=== PATIENT | female | born 1950 | race Caucasian/White ===

== ENCOUNTER 2017-08-16 19:42 | Inpatient (IN) | payer OTHER ==
[~2017-08-16] VITALS: Ht 160 cm; Wt 123.0 kg
[~2017-08-16 19:42] MED LIST: ASPIR 8181 M1 PO; AUGMENTIN875 MG PO; DAILY VALUE1 EACH PO; ENALAPRIL MALEA10 MG PO; MAXEPA500 MG PO; METFORMIN HCL500 MG PO; METOPROLOL TAR100 MG PO; SIMVASTATIN20 MG PO
[2017-08-16 20:10] LABS: BASE EXCESS -2.7 mEq/L (-3 to +3); BICARBONATE 21.2 mEq/L (22-26); CARBOXY HGB 1.5 % (0-5); COMMENTS - BLOOD GASES A+C+; PCO2 32 mm Hg (35-45); PO2 465 mm Hg (80-100); SITE RR; pH 7.43 (7.35-7.45)
[2017-08-16 20:11] LABS: DEVICE PB 840 NIPPV; FI02 100 %; MODE SPONT; PEEP 5 CM/H20; PRES. SUPPORT 10 CM/H2O; TOTAL RESP RATE 32 resp/min
[2017-08-16 20:42] LABS: HEMATOCRIT 24.4 % (36.0-46.0); HEMOGLOBIN 7.7 G/DL (11.9-15.5); MCH 27.7 PG (29.0-34.0); MCHC 31.6 G/DL (30.0-36.0); MCV 87.8 FL (83-99); RBC DIS.WIDTH-CV 15.6 % (11.8-14.6); RBC DIS.WIDTH-SD 50.3 % (39-53); RED BLOOD COUNT 2.78 M/uL (3.80-5.20)
[2017-08-16 20:48] LABS: INTER. NORMALIZED RATIO 1.4
[2017-08-16 20:50] LABS: ALBUMIN 2.8 g/dL (3.2-4.8); CHLORIDE 102 mEq/L (99-109); POTASSIUM 4.7 mEq/L (3.7-5.4); SODIUM 135 mEq/L (136-147)
[2017-08-16 20:51] LABS: PTT 26.2 SEC (25-37)
[2017-08-16 20:51] LABS: MAGNESIUM 1.8 mg/dL (1.3-2.7)
[2017-08-16 20:53] LABS: GLUCOSE 115 mg/dL (70-99); TOTAL PROTEIN 7.3 g/dL (6.4-8.3)
[2017-08-16 20:55] LABS: TOTAL BILIRUBIN 0.8 mg/dL (0.0-1.0)
[2017-08-16 20:56] LABS: ALKALINE PHOSPHATASE 143 IU/L (3-129); GFR ESTIMATE (CALCULATED) 26 mL/min/
[2017-08-16 20:57] LABS: UREA NITROGEN (BUN) 45 mg/dL (9-23)
[2017-08-16 20:58] LABS: AST (GOT) 24 IU/L (2-34)
[2017-08-16 20:59] LABS: ALT (GPT) 20 IU/L (3-49)
[2017-08-16 21:00] LABS: TROP-I INTERPRETATION NEGATIVE; TROPONIN-I 0.12 ng/mL (0.0-0.30)
[2017-08-16 21:05] LABS: WHITE BLOOD COUNT 1.6 K/uL (4.1-10.2)
[2017-08-16 21:41] LABS: GIANT PLATELETS 1+; HYPOCHROMASIA 1+; POLYCHROMASIA 1+
[2017-08-16 21:42] LABS: PLATELET COUNT UNABLE TO REPORT K/uL (156-360)
[2017-08-16 21:43] LABS: ABS NEUTROPHIL COUNT 0.1; ATYPICAL LYMPHOCYTE 1.8 %; EOSINOPHIL ABS CT 0.1; EOSINOPHILS 4.5 % (0-5.0); MONOCYTES 42.3 % (0-9.0); SEG.NEUTROPHILS 5.4 % (46.0-76.0)
[2017-08-16 21:48] LABS: PLATELET CLUMPS PRESENT - PLATELET C
[2017-08-17] VITALS (21 sets, daily range): BP systolic 108–172; BP diastolic 58–96
[2017-08-17 02:09] LABS: CHLORIDE 103 mEq/L (99-109); POTASSIUM 5.2 mEq/L (3.7-5.4); SODIUM 136 mEq/L (136-147)
[2017-08-17 02:11] LABS: GLUCOSE 172 mg/dL (70-99)
[2017-08-17 02:13] LABS: HEMATOCRIT 23.4 % (36.0-46.0); HEMOGLOBIN 7.4 G/DL (11.9-15.5); MCHC 31.6 G/DL (30.0-36.0); MCV 88.6 FL (83-99); RBC DIS.WIDTH-CV 15.5 % (11.8-14.6); RBC DIS.WIDTH-SD 50.4 % (39-53); RED BLOOD COUNT 2.64 M/uL (3.80-5.20)
[2017-08-17 02:15] LABS: CREATININE 2.1 mg/dL (0.6-1.3); GFR ESTIMATE (CALCULATED) 25 mL/min/
[2017-08-17 02:16] LABS: UREA NITROGEN (BUN) 47 mg/dL (9-23)
[2017-08-17] MEDS ORDERED: PAIN & FEVER325 MG PO (02:30)
[2017-08-17] MEDS ORDERED: AMARYL2 MG PO (02:31)
[2017-08-17] MEDS ORDERED: AMARYL1 MG PO (02:31)
[2017-08-17] MEDS ORDERED: IRON325 M1 PO (02:32)
[2017-08-17] MEDS ORDERED: COUGH SYRU100 MG/5 M PO (02:33)
[2017-08-17] MEDS ORDERED: PERCOCET 5/31 TABLET PO (02:34)
[2017-08-17] MEDS ORDERED: PERCOCET 10/1 TABLET PO (02:34)
[2017-08-17] MEDS ORDERED: SENNA PLUS TAB1 EACH PO (02:35)
[2017-08-17] MEDS ORDERED: TUMS500 MG PO (02:36)
[2017-08-17] MEDS ORDERED: ASPIR 8181 M1 PO (02:51)
[2017-08-17] MEDS ORDERED: NORVASC10 MG PO (02:51)
[2017-08-17] MEDS ORDERED: LIPITOR20 MG PO (02:52)
[2017-08-17] MEDS ORDERED: PLAVIX75 MG PO (02:52)
[2017-08-17] MEDS ORDERED: DULCOLAX10 MG PR (02:53)
[2017-08-17] MEDS ORDERED: PEPCID20 MG PO (02:53)
[2017-08-17] MEDS ORDERED: APRESOLINE25 MG PO ×2 (02:54→02:55)
[2017-08-17] MEDS ORDERED: MILK OF MAGN PO (02:56)
[2017-08-17] MEDS ORDERED: MIRALAX17 GM PO (02:57)
[2017-08-17 03:12] LABS: PLATELET COUNT 305 K/uL (156-360)
[2017-08-17 03:13] LABS: ABS NEUTROPHIL COUNT 0.1; BAND NEUTROPHILS 0.9 % (0-8.0); EOSINOPHIL ABS CT 0.1; EOSINOPHILS 2.6 % (0-5.0); HYPOCHROMASIA 2+; LYMPHOCYTES 44.7 % (15.0-45.0); MONOCYTES 48.3 % (0-9.0); PLAT.SUFFICIENCY ADEQUATE; POLYCHROMASIA 1+; SEG.NEUTROPHILS 3.5 % (46.0-76.0); TOX.VACUOLIZATION 1+; TOXIC GRANULATION 1+
[2017-08-17 09:34] LABS: TROP-I INTERPRETATION NEGATIVE; TROPONIN-I 0.16 ng/mL (0.0-0.30)
[2017-08-17 10:23] LABS: VANCOMYCIN, TROUGH 17.5 MCG/ML (10-20)
[2017-08-17 12:15] LABS: BASE EXCESS -3.2 mEq/L (-3 to +3); BICARBONATE 21.1 mEq/L (22-26); CARBOXY HGB 2.8 % (0-5); COMMENTS - BLOOD GASES AC+; DEVICE HHFNC; FI02 100 %; METHEMOGLOBIN 1.1 % (0-1.5); O2 FLOW 35 L/MIN; PCO2 34 mm Hg (35-45); PO2 68 mm Hg (80-100); SITE RR; TOTAL RESP RATE 38 resp/min
[2017-08-17 14:37] LABS: APPEARANCE SL.HAZY ((CLEAR)); BILIRUBIN NEGATIVE; BLOOD MODERATE; COLOR YELLOW ((YELLOW)); GLUCOSE (STRIP) NEGATIVE; KETONES NEGATIVE; LEUKOCYTES NEGATIVE; NITRITE NEGATIVE; PROTEIN (STRIP) 30; UROBILINOGEN 0.2 MG/DL (0.2-1.0)
[2017-08-17 14:41] LABS: BACTERIA RARE /HPF; EPITHELIAL CELLS RARE /HPF; HYALINE CASTS 0-5 /LPF; MUCUS TRACE /LPF; UCUL ADDED? NO; WHITE BLOOD CELLS 0-5 /HPF (0-5)
[2017-08-17 15:59] LABS: TROP-I INTERPRETATION NEGATIVE; TROPONIN-I 0.19 ng/mL (0.0-0.30)
[2017-08-18] VITALS (13 sets, daily range): BP systolic 113–149; BP diastolic 60–91
[2017-08-18 05:08] LABS: HEMATOCRIT 25.4 % (36.0-46.0); HEMOGLOBIN 8.1 G/DL (11.9-15.5); MCH 27.6 PG (29.0-34.0); MCHC 31.9 G/DL (30.0-36.0); MCV 86.7 FL (83-99); PLATELET COUNT 334 K/uL (156-360); RBC DIS.WIDTH-CV 15.8 % (11.8-14.6); RBC DIS.WIDTH-SD 50.6 % (39-53); RED BLOOD COUNT 2.93 M/uL (3.80-5.20); WHITE BLOOD COUNT 2.4 K/uL (4.1-10.2)
[2017-08-18 05:34] LABS: CHLORIDE 103 mEq/L (99-109); SODIUM 141 mEq/L (136-147)
[2017-08-18 05:39] LABS: GLUCOSE 90 mg/dL (70-99); POTASSIUM 4.1 mEq/L (3.7-5.4)
[2017-08-18 05:40] LABS: CREATININE 1.9 mg/dL (0.6-1.3); GFR ESTIMATE (CALCULATED) 28 mL/min/
[2017-08-18 05:41] LABS: UREA NITROGEN (BUN) 55 mg/dL (9-23)
[2017-08-18 07:13] LABS: STOOL OCCULT BLD 1ST SPECIMEN POSITIVE
[2017-08-18 07:15] LABS: ABS NEUTROPHIL COUNT 0.1; ANISOCYTOSIS 1+; ATYPICAL LYMPHOCYTE 5.2 %; EOSINOPHIL ABS CT 0.1; EOSINOPHILS 5.2 % (0-5.0); HYPOCHROMASIA 1+; MONOCYTES 25.2 % (0-9.0); PLAT.SUFFICIENCY ADEQUATE; POLYCHROMASIA 1+; SEG.NEUTROPHILS 4.4 % (46.0-76.0)
[2017-08-19] VITALS (19 sets, daily range): BP systolic 99–137; BP diastolic 47–74
[2017-08-19 10:10] LABS: CHLORIDE 100 MEQ/L (99-109); CREATININE 1.9 MG/DL (0.6-1.3); GFR ESTIMATE (CALCULATED) 28 mL/min/; POTASSIUM 3.8 MEQ/L (3.7-5.4); SODIUM 137 MEQ/L (136-147); UREA NITROGEN (BUN) 54 mg/dL (9-23)
[2017-08-19 10:17] LABS: GLUCOSE 171 mg/dL (70-99)
[2017-08-20 03:56] VITALS: BP 139/64
[2017-08-20 07:35] VITALS: BP 136/65
[2017-08-20 11:29] VITALS: BP 122/60
[2017-08-20 11:29] LABS: CHLORIDE 100 MEQ/L (99-109); CREATININE 2.3 MG/DL (0.6-1.3); GFR ESTIMATE (CALCULATED) 22 mL/min/; GLUCOSE 150 mg/dL (70-99); POTASSIUM 3.8 MEQ/L (3.7-5.4); SODIUM 137 MEQ/L (136-147); UREA NITROGEN (BUN) 59 mg/dL (9-23)
[2017-08-20 15:56] VITALS: BP 122/62
[2017-08-20 20:01] VITALS: BP 134/75
[2017-08-21 00:03] VITALS: BP 111/54
[2017-08-21 03:50] VITALS: BP 123/59
[2017-08-21 06:38] LABS: CHLORIDE 100 MEQ/L (99-109); GFR ESTIMATE (CALCULATED) 18 mL/min/; MAGNESIUM 1.8 mg/dl (1.3-2.7); POTASSIUM 3.9 MEQ/L (3.7-5.4); SODIUM 134 MEQ/L (136-147); UREA NITROGEN (BUN) 72 mg/dL (9-23)
[2017-08-21 06:45] LABS: CREATININE 2.8 MG/DL (0.6-1.3); GLUCOSE 111 mg/dL (70-99)
[2017-08-21 07:40] VITALS: BP 127/68
[2017-08-21 12:23] VITALS: BP 124/66
[2017-08-21 15:47] VITALS: BP 126/61
[2017-08-21 19:54] VITALS: BP 132/62
[2017-08-22] VITALS (10 sets, daily range): BP systolic 100–140; BP diastolic 56–74
[2017-08-22 05:39] LABS: BASOPHIL (%) 0.5 % (0-1); EOSINOPHIL COUNT 0.1 K/uL (0-0.3); HEMATOCRIT 23.3 % (36.0-46.0); HEMOGLOBIN 7.5 G/DL (11.9-15.5); IMMATURE GRANULOCYTE (%) 2.1 % (0.0-0.7); LYMPHOCYTE (%) 14.9 % (15-42); LYMPHOCYTE COUNT 0.9 K/uL (1.0-2.8); MCH 27.5 PG (29.0-34.0); MCHC 32.2 G/DL (30.0-36.0); MCV 85.3 FL (83-99); MONOCYTE (%) 22.4 % (3-12); MONOCYTE COUNT 1.4 K/uL (0-0.8); NEUTROPHIL (%) 59.1 % (45-76); NEUTROPHIL COUNT 3.6 K/uL (1.8-6.4); PLATELET COUNT 363 K/uL (156-360); RBC DIS.WIDTH-CV 16.4 % (11.8-14.6); RBC DIS.WIDTH-SD 51.7 % (39-53); RED BLOOD COUNT 2.73 M/uL (3.80-5.20); WHITE BLOOD COUNT 6.1 K/uL (4.1-10.2)
[2017-08-22 05:55] LABS: CHLORIDE 99 MEQ/L (99-109); GFR ESTIMATE (CALCULATED) 14 mL/min/; GLUCOSE 122 mg/dL (70-99); POTASSIUM 3.7 MEQ/L (3.7-5.4); SODIUM 135 MEQ/L (136-147); UREA NITROGEN (BUN) 76 mg/dL (9-23)
[2017-08-22 05:56] LABS: CREATININE 3.4 MG/DL (0.6-1.3)
[2017-08-23 03:47] VITALS: BP 139/82; BP 160/84
[2017-08-23 07:22] LABS: CHLORIDE 97 MEQ/L (99-109); GFR ESTIMATE (CALCULATED) 11 mL/min/; GLUCOSE 131 mg/dL (70-99); SODIUM 135 MEQ/L (136-147); UREA NITROGEN (BUN) 95 mg/dL (9-23)
[2017-08-23 07:25] LABS: CREATININE 4.3 MG/DL (0.6-1.3)
[2017-08-23 07:41] VITALS: BP 119/59
[2017-08-23 09:13] LABS: BASOPHIL (%) 0.5 % (0-1); EOSINOPHIL (%) 0.6 % (0-5); EOSINOPHIL COUNT 0.1 K/uL (0-0.3); HEMATOCRIT 26.8 % (36.0-46.0); HEMOGLOBIN 8.4 G/DL (11.9-15.5); LYMPHOCYTE (%) 12.6 % (15-42); MCH 27.1 PG (29.0-34.0); MCHC 31.3 G/DL (30.0-36.0); MCV 86.5 FL (83-99); MONOCYTE (%) 17.4 % (3-12); MONOCYTE COUNT 1.4 K/uL (0-0.8); NEUTROPHIL (%) 65.9 % (45-76); NEUTROPHIL COUNT 5.5 K/uL (1.8-6.4); PLATELET COUNT 377 K/uL (156-360); RBC DIS.WIDTH-CV 16.1 % (11.8-14.6); WHITE BLOOD COUNT 8.3 K/uL (4.1-10.2)
[2017-08-23 09:38] LABS: URIC ACID 15.6 mg/dL (3.1-9.2)
[2017-08-23 11:51] VITALS: BP 140/64
[2017-08-23 16:00] VITALS: BP 139/69
[2017-08-23 19:30] VITALS: BP 134/68
[2017-08-23 23:32] VITALS: BP 114/55
[2017-08-24 03:49] VITALS: BP 136/65
[2017-08-24 07:25] VITALS: BP 129/67
[2017-08-24 08:56] LABS: HEMATOCRIT 26.2 % (36.0-46.0); HEMOGLOBIN 8.2 G/DL (11.9-15.5); MCH 26.5 PG (29.0-34.0); MCHC 31.3 G/DL (30.0-36.0); MCV 84.8 FL (83-99); PLATELET COUNT 388 K/uL (156-360); RBC DIS.WIDTH-CV 15.9 % (11.8-14.6); RBC DIS.WIDTH-SD 49.5 % (39-53); RED BLOOD COUNT 3.09 M/uL (3.80-5.20); WHITE BLOOD COUNT 8.2 K/uL (4.1-10.2)
[2017-08-24 09:23] LABS: ALBUMIN 2.2 G/DL (3.2-4.8); ALKALINE PHOSPHATASE 167 IU/L (3-129); ALT (GPT) 12 IU/L (3-49); AST (GOT) 12 IU/L (2-34); CHLORIDE 100 MEQ/L (99-109); CREATININE 4.7 MG/DL (0.6-1.3); GFR ESTIMATE (CALCULATED) 10 mL/min/; GLUCOSE 162 mg/dL (70-99); POTASSIUM 3.9 MEQ/L (3.7-5.4); SODIUM 137 MEQ/L (136-147); TOTAL BILIRUBIN 0.6 MG/DL (0.0-1.0); TOTAL PROTEIN 6.2 G/DL (6.4-8.3); UREA NITROGEN (BUN) 108 mg/dL (9-23)
[2017-08-24 11:19] VITALS: BP 128/66
[2017-08-24 15:41] VITALS: BP 125/66
[2017-08-24 19:57] VITALS: BP 146/81
[2017-08-25] VITALS (7 sets, daily range): BP systolic 123–167; BP diastolic 60–82
[2017-08-25 06:21] LABS: ALBUMIN 2.2 G/DL (3.2-4.8); CHLORIDE 101 MEQ/L (99-109); CREATININE 4.4 MG/DL (0.6-1.3); GFR ESTIMATE (CALCULATED) 11 mL/min/; GLUCOSE 130 mg/dL (70-99); PHOSPHORUS 6.6 mg/dL (2.5-4.9); POTASSIUM 3.7 MEQ/L (3.7-5.4); SODIUM 138 MEQ/L (136-147)
[2017-08-25 06:32] LABS: UREA NITROGEN (BUN) 112 mg/dL (9-23)
[2017-08-26 03:38] VITALS: BP 127/64
[2017-08-26 06:44] LABS: HEMATOCRIT 28.4 % (36.0-46.0); HEMOGLOBIN 8.9 G/DL (11.9-15.5); MCH 26.8 PG (29.0-34.0); MCHC 31.3 G/DL (30.0-36.0); MCV 85.5 FL (83-99); PLATELET COUNT 424 K/uL (156-360); RBC DIS.WIDTH-CV 15.9 % (11.8-14.6); RBC DIS.WIDTH-SD 49.2 % (39-53); RED BLOOD COUNT 3.32 M/uL (3.80-5.20); WHITE BLOOD COUNT 9.3 K/uL (4.1-10.2)
[2017-08-26 07:19] LABS: ALBUMIN 2.6 G/DL (3.2-4.8); CHLORIDE 105 MEQ/L (99-109); CREATININE 3.8 MG/DL (0.6-1.3); GFR ESTIMATE (CALCULATED) 13 mL/min/; GLUCOSE 109 mg/dL (70-99); PHOSPHORUS 4.8 mg/dL (2.5-4.9); POTASSIUM 3.7 MEQ/L (3.7-5.4); SODIUM 140 MEQ/L (136-147)
[2017-08-26 07:22] LABS: UREA NITROGEN (BUN) 105 mg/dL (9-23)
[2017-08-26 07:24] VITALS: BP 125/64
[2017-08-26 11:46] VITALS: BP 131/68
[2017-08-26 16:06] VITALS: BP 141/72
[2017-08-26 19:12] VITALS: BP 153/78
[2017-08-26 23:51] VITALS: BP 164/77
[2017-08-27 06:36] LABS: BASOPHIL (%) 0.4 % (0-1); EOSINOPHIL (%) 0.2 % (0-5); HEMATOCRIT 28.9 % (36.0-46.0); HEMOGLOBIN 9.1 G/DL (11.9-15.5); IMMATURE GRANULOCYTE (%) 4.9 % (0.0-0.7); LYMPHOCYTE (%) 18.9 % (15-42); LYMPHOCYTE COUNT 1.7 K/uL (1.0-2.8); MCH 27.2 PG (29.0-34.0); MCHC 31.5 G/DL (30.0-36.0); MCV 86.5 FL (83-99); MONOCYTE (%) 13.1 % (3-12); MONOCYTE COUNT 1.2 K/uL (0-0.8); NEUTROPHIL (%) 62.5 % (45-76); NEUTROPHIL COUNT 5.6 K/uL (1.8-6.4); PLATELET COUNT 384 K/uL (156-360); RBC DIS.WIDTH-CV 15.9 % (11.8-14.6); RBC DIS.WIDTH-SD 50.1 % (39-53); RED BLOOD COUNT 3.34 M/uL (3.80-5.20)
[2017-08-27 07:01] LABS: ALBUMIN 2.5 G/DL (3.2-4.8); CHLORIDE 108 MEQ/L (99-109); GFR ESTIMATE (CALCULATED) 18 mL/min/; GLUCOSE 132 mg/dL (70-99); PHOSPHORUS 3.8 mg/dL (2.5-4.9); POTASSIUM 3.7 MEQ/L (3.7-5.4); SODIUM 143 MEQ/L (136-147); UREA NITROGEN (BUN) 100 mg/dL (9-23)
[2017-08-27 07:04] LABS: CREATININE 2.8 MG/DL (0.6-1.3)
[2017-08-27 07:35] VITALS: BP 169/78
[2017-08-27 16:29] VITALS: BP 163/76
[2017-08-27 20:48] VITALS: BP 164/73
[2017-08-28 01:30] VITALS: BP 145/80
[2017-08-28 06:00] VITALS: BP 150/80
[2017-08-28 08:01] LABS: HEMATOCRIT 28.7 % (36.0-46.0); MCH 27.4 PG (29.0-34.0); MCHC 31.4 G/DL (30.0-36.0); MCV 87.2 FL (83-99); PLATELET COUNT 321 K/uL (156-360); RBC DIS.WIDTH-CV 15.6 % (11.8-14.6); RBC DIS.WIDTH-SD 50.3 % (39-53); RED BLOOD COUNT 3.29 M/uL (3.80-5.20); WHITE BLOOD COUNT 9.7 K/uL (4.1-10.2)
[2017-08-28 08:07] LABS: INTER. NORMALIZED RATIO 1.4
[2017-08-28 08:10] LABS: PTT 28.2 SEC (25-37)
[2017-08-28 08:16] VITALS: BP 175/84
[2017-08-28 08:48] LABS: CHLORIDE 107 MEQ/L (99-109); GFR ESTIMATE (CALCULATED) 25 mL/min/; GLUCOSE 146 mg/dL (70-99); POTASSIUM 3.6 MEQ/L (3.7-5.4); SODIUM 141 MEQ/L (136-147); UREA NITROGEN (BUN) 79 mg/dL (9-23)
[2017-08-28 08:49] LABS: CREATININE 2.1 MG/DL (0.6-1.3)
[2017-08-28 10:35] VITALS: BP 122/64
[2017-08-28] MEDS ORDERED: PERCOCET 10/1 TABLET PO (12:26)
[2017-08-28] MEDS ORDERED: Colchicine,Colcrys PO (12:29)
[2017-08-28] MEDS ORDERED: LASIX20 MG PO (12:31)
[2017-08-28] MEDS ORDERED: PERCOCET 5/31 TABLET PO (13:08)
[2017-08-28 16:01] VITALS: BP 164/79
[2017-08-28 20:05] VITALS: BP 157/74
[2017-08-29 01:20] VITALS: BP 150/86
[2017-08-29 04:06] VITALS: BP 152/68
[2017-08-29 07:53] VITALS: BP 136/86
[2017-08-29] MEDS ORDERED: LASIX20 MG PO (08:17)
[2017-08-29] MEDS ORDERED: NABI650T PO (08:17)
[2017-08-29] MEDS ORDERED: ULORIC40 MG PO (08:17)
[2017-08-29] MEDS ORDERED: GLIPIZIDE5 MG PO (08:17)
[2017-08-29] MEDS ORDERED: Colchicine,Colcrys PO (08:17)
[2017-08-29] MEDS ORDERED: MYCOSTATIN 100,60 ML PO (08:20)
[2017-08-29] MEDS ORDERED: AMLODIPINE BESYL5 MG PO (08:20)
[2017-08-29] MEDS ORDERED: CORDARONE200 MG PO (08:20)
== END 2017-08-29 16:54 | disposition home health service (06) | DRG 871 ==
LOC: EME → EDBD 19:42 → 4EAST 23:45 → 4WEST 23:45 → EDOF 23:45 → ENRESERV 23:46 → 4EAST 08-17 01:42 → CANRESERV 08-17 11:40 → ENRESERVTM 08-17 11:40 → ENRESERV 08-17 11:40 → ENRESERVDT 08-17 11:40 → 4EAST 08-17 12:29 → ENRESERV 08-17 12:30 → 4WEST 08-17 12:39 → ENRESERV 08-19 16:31 → 5SOUTH 08-19 18:05
PROVIDERS: Emergency Medicine; Hospitalist; Internal Medicine; Internal Medicine Critical Care Medicine; Internal Medicine Nephrology; Nurse Practitioner Adult Health; Physician Assistant; Physician Assistant Medical
PROC: 5A09357 Assistance with Respiratory Ventilation, Less than 24 Consecutive Hours, Continuous Positive Airway Pressure (ICD-10-PCS; principal; 2017-08-16)
PROC: 30233N1 Transfusion of Nonautologous Red Blood Cells into Peripheral Vein, Percutaneous Approach (ICD-10-PCS; 2017-08-17)
DX: A41.9 Sepsis, unspecified organism (principal); R65.20 Severe sepsis without septic shock; J18.9 Pneumonia, unspecified organism; Y95 Nosocomial condition; J96.01 Acute respiratory failure with hypoxia; N17.0 Acute kidney failure with tubular necrosis; E87.2 Acidosis; B37.0 Candidal stomatitis; I13.0 Hypertensive heart and chronic kidney disease with heart failure and stage 1 through stage 4 chronic kidney disease, or unspecified chronic kidney disease; I50.33 Acute on chronic diastolic (congestive) heart failure; E11.22 Type 2 diabetes mellitus with diabetic chronic kidney disease; N18.3 Chronic kidney disease, stage 3 (moderate); D50.9 Iron deficiency anemia, unspecified; E78.5 Hyperlipidemia, unspecified; G47.33 Obstructive sleep apnea (adult) (pediatric); G89.4 Chronic pain syndrome; I25.10 Atherosclerotic heart disease of native coronary artery without angina pectoris; I25.82 Chronic total occlusion of coronary artery; I35.0 Nonrheumatic aortic (valve) stenosis; I47.1 Supraventricular tachycardia; I48.91 Unspecified atrial fibrillation; J98.11 Atelectasis; M10.9 Gout, unspecified; E88.09 Other disorders of plasma-protein metabolism, not elsewhere classified; E66.01 Morbid (severe) obesity due to excess calories; Z68.43 Body mass index [BMI] 50.0-59.9, adult; I25.2 Old myocardial infarction; Z74.01 Bed confinement status; Z95.5 Presence of coronary angioplasty implant and graft; Z79.82 Long term (current) use of aspirin; Z79.02 Long term (current) use of antithrombotics/antiplatelets
CPT/HCPCS: 36600; 71045; 71250; 80048; 80053; 80069; 80202; 81003; 82272; 82607; 82728; 82746; 82803; 82948; 83540; 83605; 83735; 83880; 84443; 84466; 84484; 84550; 85025; 85027; 85049; 85610; 85730; 86850; 86900; 86901; 86920; 87040; 87070; 87205; 87449; 87502; 87641; 93005; 93306; 93970; 94002; 94003; 94010; 94640; 94640 76; 94760; 94799; 97530 GP; 99202; 99281; 99284; J1644; J1815; J1940; J2543; J3010; J3370; J7030; J7050; J7512; P9016